=== PATIENT | male | born 2005 | race Caucasian/White ===

== ENCOUNTER 2023-11-22 09:50 | Emergency (ER) | payer SELFPAY ==
[2023-11-22 09:58] VITALS: BP 108/66; PULSE 67; RESP 18; TEMP 36.6; O2SAT 100; BMI 19.3
--- NOTE | 2023-11-22 10:05 | CTR_ITS ---
PROCEDURE INFORMATION: Exam: CT Maxillofacial Without Contrast Exam date and time: 11/22/2023 10:14 AM Age: 18 years old Clinical indication: Injury or trauma; Other: Kicked by horse to left side of face; Blunt trauma (contusions or hematomas); Ocular (eye or eyeball) and orbit/periorbital TECHNIQUE: Imaging protocol: Computed tomography of the face without contrast. Radiation optimization: All CT scans at this facility use at least one of these dose optimization techniques: automated exposure control; mA and/or kV adjustment per patient size (includes targeted exams where dose is matched to clinical indication); or iterative reconstruction. COMPARISON: CT head wo con* [id number] 11/22/2023 10:14 AM RADIATION DOSE METRICS: Total DLP (mGy-cm): 640.8 FINDINGS: Orbital cavities: Left orbital blowout fracture of the inferior and lateral orbital camara. There is also a fracture through the anterior lateral left maxilla and zygoma. Air noted within the left orbital cavity. Left globe is intact. Bones/joints: Please see orbital cavity section. Paranasal sinuses: Mucosal thickening of the paranasal sinuses with partially fluid-filled maxillary sinuses. Soft tissues: Unremarkable. CT/CT facial bones wo con* [id number] IMPRESSION: Left orbital blowout fracture of the inferior and lateral orbital camara, with additional fractures of the anterolateral left maxilla and zygoma.
--- NOTE | 2023-11-22 10:05 | CTR_ITS ---
PROCEDURE INFORMATION: Exam: CT Head Without Contrast Exam date and time: 11/22/2023 10:14 AM Age: 18 years old Clinical indication: Injury or trauma; Other: Kicked in left side by horse; Blunt trauma (contusions or hematomas) TECHNIQUE: Imaging protocol: Computed tomography of the head without contrast. Radiation optimization: All CT scans at this facility use at least one of these dose optimization techniques: automated exposure control; mA and/or kV adjustment per patient size (includes targeted exams where dose is matched to clinical indication); or iterative reconstruction. COMPARISON: CT facial bones wo con* [id number] 11/22/2023 10:14 AM RADIATION DOSE METRICS: Total DLP (mGy-cm): 917.3 FINDINGS: Brain: Normal. No hemorrhage. Unremarkable white matter. No mass effect. Cerebral ventricles: No ventriculomegaly. Paranasal sinuses: Please see corresponding CT maxillofacial report. Mastoid air cells: Visualized mastoid air cells are well aerated. Bones/joints: No acute calvarial fracture. For further description of maxillofacial fractures please see corresponding CT maxillofacial report. Soft tissues: Unremarkable. CT/CT head wo con* [id number] IMPRESSION: No acute intracranial abnormality.
--- NOTE | 2023-11-22 10:08 | W.ED.HEATRA ---
HPI - Head Injury General: Chief complaint: Head Injury Stated complaint: head pains,kicked by horse Time Seen by Provider: 11/22/23 09:52 Source: patient Mode of arrival: ambulatory Limitations: no limitations History of Present Illness: 18-year-old male states he was kicked in the face by a horse this morning. He believes he may have had a brief loss of consciousness kick team to his left forehead around his eyes he does have some pain around that eye he had some mild blurred vision. He had 1 episode of vomiting he rates his pain a 3 out of 10 currently denies any neck pain or any other injuries Associated symptoms: Deny nausea, neck pain or vomiting Review of Systems Const: Denies: fever(s) or chills Eyes: Reports: blurry vision and eye discomfort ENMT: Denies: throat pain or dental pain Card: Denies: chest pain Resp: Denies: dyspnea GI: Denies: abdominal pain, nausea, vomiting or diarrhea Musc: Denies: neck pain or back pain Skin/Breast: Denies: rash Neuro: Reports: headache(s) Physical Exam Const: COMMON NORMALS: no acute distress, patient oriented x3 and healthy appearing HENMT: COMMON NORMALS: normocephalic HEAD & SCALP: normocephalic OTHER: Bruising to left forehead left eye Eye: COMMON NORMALS: Equal, round and reactive pupils present and EOMs intact bilaterally PUPIL: Yes Equal, round and reactive pupils present OTHER: Visual acuity is normal Neck/C-Spine: COMMON NORMALS: full ROM and supple Chest: COMMONS NORMALS: normal inspection of the chest Resp: COMMON NORMALS: normal respiratory effort Cardio: COMMON NORMALS: regular rate, regular rhythm and No murmurs present (Cardio) RATE: regular rate RHYTHM: regular rhythm Extremity: COMMON NORMALS: normal to inspection and full ROM Neuro: COMMON NORMALS: patient oriented x3, moves all extremities and no focal motor deficits Psych: COMMON NORMALS: mental status grossly normal, Normal thought process present and cooperative THOUGHT PROCESS: Normal thought process present Skin: COMMON NORMALS: no rashes or lesions noted and no wounds GENERAL SKIN EXAM: no rashes or lesions noted Course Vital Signs: Vital signs: Vital Signs Temperature 97.8 F 11/22/23 09:58 Pulse Rate 67 11/22/23 09:58 Respiratory Rate 18 11/22/23 09:58 Blood Pressure 108/66 11/22/23 09:58 Pulse Oximetry 100 11/22/23 09:58 Oxygen Delivery Me thod Room Air 11/22/23 09:58 MDM - Head Injury Medcial Decision Making Patient presents here with a orbital fracture he has no signs of globe injury his vision is normal here no signs of retrobulbar hematoma did speak with ENT at [facility] he does not require transfer we will get him follow-up with ENT outpatient he is return if worsening. Medical Records I reviewed the patient's medical records. Lab Data Radiology Impressions Face CT 11/22/23 10:05 IMPRESSION: Left orbital blowout fracture of the inferior and lateral orbital camaar, with additional fractures of the anterolateral left maxilla and zygoma. Head CT 11/22/23 10:05 IMPRESSION: No acute intracranial abnormality. All radiology interpretation(s) finalized by discharge Discharge Plan Discharge Patient Disposition: Home Clinical Impression: Closed head injury, Orbital floor (blow-out) closed fracture Condition: Stable Prescriptions: New hydrocodone-acetaminophen 5-325 mg tablet 1 tab PO Q6H PRN (Reason: pain) Qty: 14 0RF Discharge Orders: Discharge ED (Routine); Ordered 11/22/23 Ordered By: Kory Gabriel Referrals: Valentin Bynum MD [Physician] - 1-3 days Discharge Diet: Advance as tolerated Discharge Activity: Resume usual activity Patient Instructions: Fractures - Orbital, Facial Fracture (ED), Opioid Safety Coding Level of Care Code 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
[2023-11-22] MEDS: HYDROcodone-acetaminophen 5-325 mg Tablet 1 TAB PO (10:38)
--- NOTE | 2023-11-23 10:59 | DCPLANNER ---
/A message was sent to ENT on 11/22/23 at 1101. Clinic to contact patient for appt
== END 2023-11-22 11:28 | disposition home or self-care (01) ==
PROVIDERS: Emergency Provider Emergency Medicine
DX: S02.32XA Fracture of orbital floor, left side, initial encounter for closed fracture (principal); S00.83XA Contusion of other part of head, initial encounter; W55.12XA Struck by horse, initial encounter
CPT/HCPCS: 70450; 70486; 99284

== ENCOUNTER 2023-11-26 15:37 | Emergency (ER) | payer SELFPAY ==
[2023-11-26 15:55] VITALS: BP 109/70; PULSE 74; RESP 16; TEMP 36.8; O2SAT 98; BMI 19.3
--- NOTE | 2023-11-26 16:03 | W.ED.GENADLT ---
HPI - General Adult General: Chief complaint: General Medical Stated complaint: numb face left (face injury) Time Seen by Provider: 11/26/23 16:01 History of Present Illness: 18-year-old male patient comes in for reevaluation of facial injury. Patient reports some numbness to his left inner cheek. Patient was kicked in the face by a horse on Thursday and was diagnosed with a fracture of the orbit. Review of the record noted that an ENT was consulted patient does have an appointment for next Thursday. Patient reports no fever or chills. Patient denies any significant headache. Patient reports no significant pain. Swelling has improved considerably as reported by family. No redness is noted. Patient's main concern was relating the numbness to the facial cheek. Patient denies any problems with patient. Review of Systems General: Reports: 10 or more systems reviewed and unremarkable except in HPI and below Physical Exam Const: COMMON NORMALS: alert HENMT: FACE & SINUS: Facial tenderness on exam of face and sinuses on the left and other (Mild bruising left facial cheek) Eye: GENERAL EYE: appearance normal, both eyes and all related structures and other (Normal tracking, patient reports normal acuity) Neck/C-Spine: COMMON NORMALS: full ROM Chest: COMMONS NORMALS: normal palpation of entire chest wall Resp: COMMON NORMALS: normal respiratory effort Cardio: COMMON NORMALS: regular rate RATE: regular rate GI: COMMON NORMALS: Soft to palpation PALPATION: Yes Soft to palpation Back/Pelvis: COMMON NORMALS: thoracic and lumbar spine normal to inspection Extremity: COMMON NORMALS: full ROM Neuro: SENSORIUM/ORIENTATION: Yes alert Skin: COMMON NORMALS: turgor normal GENERAL SKIN EXAM: turgor normal Course Vital Signs: Vital signs: Vital Signs Temperature 98.2 F 11/26/23 15:55 Pulse Rate 74 11/26/23 15:55 Respiratory Rate 16 11/26/23 15:55 Blood Pressure 109/70 11/26/23 15:55 Pulse Oximetry 98 11/26/23 15:55 Oxygen Delivery Me thod Room Air 11/26/23 15:55 [facility] - General Adult Medical Decision Making 18-year-old male patient comes in today with injury to the left facial cheek. This is an injury that occurred on Thursday and patient has been prior evaluated with CT scan. CT noted a periorbital fracture. Patient was concerned about the numbness of the facial cheek. Pupils are equal and reactive. Patient's follows with eyes with no deficit. No nasal septal hematomas noted. No bleeding is noted in her throat. Bilateral TMs are normal. Differential diagnosis orbital fracture, paresthesias of the face, infection. No signs of infection is noted at this time. Believe the numbness is probably just secondary to the injury and recovery. Reassured patient. Discussed need for monitoring for infection or loss of vision in the eye. Reviewed exam with patient with recommendations for treatment and follow-up. Patient reported understanding and agreed to plan. No radiology studies performed this visit Discharge Plan Discharge Patient Disposition: Home Clinical Impression: Orbital floor (blow-out) closed fracture, Left facial numbness Condition: Stable Prescriptions: No Action hydrocodone-acetaminophen 5-325 mg tablet 1 tab PO Q6H PRN (Reason: pain) Qty: 14 0RF Discharge Orders: Discharge ED (Routine); Ordered 11/26/23 Ordered By: Jose Luis Waddell Discharge Diet: Usual diet Discharge Activity: Increase activity as tolerated Patient Instructions: Facial Fracture (ED) Activity Restrictions/Additional Instructions: Home and rest. Continue with medications as directed for pain. Keep appointment with agricultural research engineer as scheduled. Return to ED for worsening symptoms such as high fever, loss of vision in the eye, severe headache, or new concerns. 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
== END 2023-11-26 16:29 | disposition home or self-care (01) ==
PROVIDERS: Emergency Provider Nurse Practitioner Family
DX: S02.32XA Fracture of orbital floor, left side, initial encounter for closed fracture (principal); R20.0 Anesthesia of skin; W55.12XA Struck by horse, initial encounter
CPT/HCPCS: 99281